=== PATIENT | female | born 1975 | race Caucasian/White ===

== ENCOUNTER 2022-12-31 17:09 | Inpatient (IN) | payer SELFPAY ==
[~2022-12-31] VITALS: Ht 162.5 cm; Wt 74.2 kg
[2022-12-31] MEDS ORDERED: KETOROLAC INJ 30 MG/ML VIAL IVP ONE (20:15)
[2022-12-31] MEDS ORDERED: PIPERACILLIN/Tazobactam 4.5 GM in NS (IVPB) 100 ML 100 ML IV ONE (20:15)
[2022-12-31] MEDS ORDERED: VANCOMYCIN INJECTION 750 MG in NS (IVPB) 250 ML 250 ML IV SCH (20:15)
[2022-12-31] MEDS ORDERED: LACTATED RINGERS 1,000 ML 1,000 ML IV ONE (20:15)
[2022-12-31 20:20] LABS: BASOPHILS # (AUTO) 0.1 10^3/uL (0.0-0.1); BASOPHILS % (AUTO) 1 % (0-10); EOSINOPHILS # (AUTO) 0.2 10^3/uL (0.0-0.3); EOSINOPHILS % (AUTO) 2 % (0-10); HEMATOCRIT 45 % (35-52); HEMOGLOBIN 15.2 g/dL (11.5-16.0); LYMPHOCYTES # (AUTO) 1.1 10^3/uL (1.0-4.0); LYMPHOCYTES % (AUTO) 10 % (12-44); MEAN CORPUSCULAR HEMOGLOBIN 31 pg (25-34); MEAN CORPUSCULAR HGB CONC 34 g/dL (32-36); MEAN CORPUSCULAR VOLUME 91 fL (80-99); MONOCYTES # (AUTO) 0.8 10^3/uL (0.0-1.0); MONOCYTES % (AUTO) 7 % (0-12); NEUTROPHILS # (AUTO) 8.8 10^3/uL (1.8-7.8); NEUTROPHILS % (AUTO) 80 % (42-75); PLATELET COUNT 254 10^3/uL (130-400)
--- NOTE | 2022-12-31 20:20 | ED Integumentary General ---
General Chief Complaint: Skin/Wound Problems Stated Complaint: SORE ON RIGHT INDEX FINGER Nursing Triage Note: PT AMB TO TRIAGE WITH CC OF AREA OF CONERN ON R 2ND FINGER SINCE 12/27. PT STATES WAS SEEN AT [facility] ON 12/29 AND RECIEVED ANTIBIOTICS. PT REPORTS FINGER HAS INCREAED IN REDDNESS AND SWELLING SINCE. PT SENT FROM [facility] THIS AFTERNOON WHERE SHE RECIEVED A SHOT OF ROCEPHIN. Source: patient History of Present Illness Date Seen by Provider: Dec 31, 2022 Time Seen by Provider: 20:00 Initial Comments PT ARRIVES VIA POV FROM HOME C/O INFECTION TO RIGHT INDEX FINGER PT WAS CAMPING LAST FRIDAY WHEN SHE NOTICED SORE ON HER RIGHT INDEX FINGER--THOUGHT SHE MIGHT HAVE BEEN BITTEN BY A SPIDER - SEEN AT [facility] ON FRIDAY AND PLACED ON BACTRIM WENT BACK TO [facility] TODAY IT IS NOT GETTING BETTER, AND IS WORSE AND NOW HAVING STREAKS UP HER [facility] WAS GIVEN A SHOT OF ROCEPHIN AND SENT HERE NO FEVER SHE TOOK IBUPROFEN THIS AM, OTHERWISE NOTHING ELSE FOR PAIN LAST 2010. PCP: NONE--WENT TO [facility] WALK IN [facility]IC FOR THE FIRST TIME ON FRIDAY AND AGAIN TODAY. Allergies and Home Medications Allergies Coded Allergies: Penicillins (Verified Allergy, Unknown, 12/31/22) vancomycin (Verified Allergy, Unknown, 12/31/22) Review of Systems Review of Systems Constitutional: no symptoms reported; No fever Musculoskeletal: see HPI Skin: see HPI Past Gacoohf-Vvkhhz-Ylrctl Hx Patient Social History Tobacco Use?: No Substance use?: Yes Substance type: Marijuana Substance frequency: Couple times a week Alcohol Use?: Yes Alcohol Frequency: Once in a while Past Medical History Surgery/Hospitalization HX: HTN, RESTLESS LEGS, MIGRAINES Surgeries: Yes (SEE BELOW) Appendectomy, Hysterectomy, Oophorectomy, Orthopedic Respiratory: Yes (RIB FX/PNEUMOTHORAX/CHEST TUBES) Cardiac: Yes (NO LONGER ON MEDICATIONS) Hypertension Neurological: Yes (BRAIN BLEED--NO SURGERY) Traumatic Brain Injury Reproductive Disorders: Yes (HYST/BSO) Female Reproductive Disorders: 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 Genitourinary: No Gastrointestinal: Yes (S/P APPENDECTOMY) Musculoskeletal: Yes (BILAT SHOULDERS, L HUMERUS, R ANKLE) Fractures Endocrine: Yes (NO LONGER ON MEDICATIONS) Diabetes, Non-Insulin dep HEENT: No Cancer: No Psychosocial: No Integumentary: No Blood Disorders: No Family Medical History ADDITIONAL PAST MEDICAL HISTORY: -PT SUSTAINED SIGNIFICANT INJURIES FROM [facility] IN 2010, AND WAS HOSPITALIZED FOR APPROXIMATELY 2 MONTHS WITH: -RIB FRACTURES WITH PNEUMOTHORAX AND CHEST TUBES -BRAIN BLEED--NO SURGERY -LEFT HUMERUS FRACTURE WITH PHYLLIS IN PLACE -RIGHT ANKLE FRACTURE WITH HARDWARE IN PLACE -BILATERAL SHOULDER FRACTURES ADDITIONALLY, SHE HAS HAD : -APPENDECTOMY -HYSTERECTOMY/BILATERAL SALPINGO-OOPHORECTOMY Physical Exam Vital Signs Vital Signs - First Documented 12/31/22 17:44 Temp 36.6 Pulse 84 Resp 18 B/P (MAP) 148/97 (114) Pulse Ox 97 O2 Delivery Room Air Capillary Refill : Less Than 3 Seconds General Appearance: WD/WN, no apparent distress Cardiovascular: regular rate, rhythm Respiratory: normal breath sounds Extremities: normal capillary refill, other (RIGHT INDEX FINGER WITH ULCERATION AND SUB QU PURULENCE TO DORSAT ASPECT OF DISTAL PHALANX, WITH SEROSANGUINOUS DRAINAGE. THERE IS DIFFUSE ERYTHEMA AND SWELLING TO DISTAL HALF OF RIGHT INDEX FINGER. NO SIGNIFICANT SWELLING TO HAND. THERE IS A STREAK NOTED TO RIGHT DORSAL FOREARM AND TO MID UPPER ARM. LIMITED FLEXION AND EXTENSION OF RIGHT INDEX FINGER DUE TO PAIN--90 DEGREES FLEXION AND PIP JOINT, . SENSORY/VASCULAR ARE INTACT. 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, no motor/sensory deficits, alert, normal mood/affect, oriented x 3 Skin: normal color, warm/dry, other ( ABOVE) Progress/Results/Core Measures Results/Orders Lab Results Laboratory Tests Test 12/31/22 20:06 12/31/22 20:18 Range/Units White Blood Count 11.0 4.3-11.0 10^3/uL Red Blood Count 4.91 3.80-5.11 10^6/uL Hemoglobin 15.2 11.5-16.0 g/dL Hematocrit 45 35-52 % Mean Corpuscular Volume 91 80-99 fL Mean Corpuscular Hemoglobin 31 25-34 pg Mean Corpuscular Hemoglobin Concent 34 32-36 g/dL Red Cell Distribution Width 12.7 10.0-14.5 % Platelet Count 254 130-400 10^3/uL Mean Platelet Volume 10.0 9.0-12.2 fL Immature Granulocyte % (Auto) 0 % Neutrophils (%) (Auto) 80 H 42-75 % Lymphocytes (%) (Auto) 10 L 12-44 % Monocytes (%) (Auto) 7 0-12 % Eosinophils (%) (Auto) 2 0-10 % Basophils (%) (Auto) 1 0-10 % Neutrophils # (Auto) 8.8 H 1.8-7.8 10^3/uL Lymphocytes # (Auto) 1.1 1.0-4.0 10^3/uL Monocytes # (Auto) 0.8 0.0-1.0 10^3/uL Eosinophils # (Auto) 0.2 0.0-0.3 10^3/uL Basophils # (Auto) 0.1 0.0-0.1 10^3/uL Immature Granulocyte # (Auto) 0.0 0.0-0.1 10^3/uL Erythrocyte Sedimentation Rate 29 H 0-20 MM/HR Prothrombin Time 12.6 12.2-14.7 SEC INR Comment 0.9 0.8-1.4 Activated Partial Thromboplast Time 28 24-35 SEC Sodium Level 136 135-145 MMOL/L Potassium Level 4.6 3.6-5.0 MMOL/L Chloride Level 105 98-107 MMOL/L Carbon Dioxide Level 20 L 21-32 MMOL/L Anion Gap 11 5-14 MMOL/L Blood Urea Nitrogen 19 H 7-18 MG/DL Creatinine 0.91 0.60-1.30 MG/DL Estimat Glomerular Filtration Rate 77 BUN/Creatinine Ratio 21 Glucose Level 91 70-105 MG/DL Calcium Level 9.2 8.5-10.1 MG/DL Corrected Calcium 9.0 8.5-10.1 MG/DL Magnesium Level 2.4 1.6-2.4 MG/DL Total Bilirubin 0.3 0.1-1.0 MG/DL Aspartate Amino Transf (AST/SGOT) 12 5-34 U/L Alanine Aminotransferase (ALT/SGPT) 18 0-55 U/L Total Creatine Kinase 113 29-168 U/L Creatine Kinase MB 2.4 <6.6 NG/ML Myoglobin 70.9 10.0-92.0 NG/ML C-Reactive Protein High Sensitivity 1.80 H 0.00-0.50 MG/DL Total Protein 7.4 6.4-8.2 GM/DL Albumin 4.2 3.2-4.5 GM/DL Lactic Acid Level 0.81 0.50-2.00 MMOL/L My Orders Orders - SARMAD ABARCA DO Ed Iv/Invasive Line Start (12/31/22 20:09) Monitor-Rhythm Ecg Trace Only (12/31/22 20:09) Cbc With Automated Diff (12/31/22 20:09) Comprehensive Metabolic Panel (12/31/22 20:) Creatine Kinase (12/31/22 20:09) Creatine Kinase Mb (12/31/22 20:09) Hs C Reactive Protein (12/31/22 20:09) Magnesium (12/31/22 20:09) Protime With Inr (12/31/22 20:09) Partial Thromboplastin Time (12/31/22 20:09) Erythrocyte Sedimentation Rate (12/31/22 20:09) Myoglobin Serum (12/31/22 20:09) Ed Iv/Invasive Line Start (12/31/22 20:09) Lactated Ringers 1,000 Ml (Lactated Ring (12/31/22 20:15) Blood Culture (12/31/22 20:09) Sputum Culture (12/31/22 20:09) Vital Signs Adult Sepsis Patie Q15M (12/31/22 20:09) Remove Rings In Anticipation O (12/31/22 20:09) Lactic Acid Analyzer (12/31/22 20:09) Piperacillin/Tazobactam (Piperacillin/Ta (12/31/22 20:15) Vancomycin Injection (Vancomycin Injecti (12/31/22 20:15) Finger(S) (12/31/22 20:09) Ct Extremity Upper Right Wo (12/31/22 20:09) Ketorolac Injection (Ketorolac Injection (12/31/22 20:15) Meropenem Injection (Meropenem Injecti (12/31/22 20:30) Wound Culture (12/31/22 20:21) Dipht/Pertuss(Acell)/Tet Adult (Dipht/Pe (12/31/22 20:30) Medications Given in ED Current Medications Medications Dose Ordered Sig/Everardo Route Start Time Stop Time Status Last Admin Dose Admin Diphtheria/ Tetanus/Acell Pertussis 0.5 ml ONCE ONCE IM 12/31/22 20:30 12/31/22 20:31 DC 12/31/22 20:51 0.5 ML Ketorolac Tromethamine 30 mg ONCE ONCE IVP 12/31/22 20:15 12/31/22 20:16 DC 12/31/22 20:50 30 MG Meropenem 500 mg/ Sodium Chloride 100 ml @ 200 mls/hr ONCE ONCE IV 12/31/22 20:30 12/31/22 20:59 12/31/22 20:50 200 MLS/HR Vital Signs/I&O 12/31/22 17:44 Temp 36.6 Pulse 84 Resp 18 B/P (MAP) 148/97 (114) Pulse Ox 97 O2 Delivery Room Air Blood Pressure Mean: 114 Progress Progress Note : Progress Note NO PRIOR VISITS HERE VITALS ON ARRIVAL: TEMP 36.6=97.8, HR 84, RR 18, BP 148/87, O2 SAT 97% ON ROOM AIR SEPSIS PROTOCOL INITIATED GIVEN: -DTP VACCINE -IV FLUIDS -ANTIBIOTICS--MEROPENEM PT IS ALLERGIC TO PENICILLIN AND VANCOMYCIN -TORADOL LABS: -CBC -CMP -CRP -SED RATE BLOOD CULTURES AND WOUND CULTURES PENDING XRAYS OF FINGER CT OF FINGER Diagnostic Imaging Comments PER RADIOLOGIST REPORTS AT 2054 FINGER XRAYS: FINDINGS: 3 views of the right 2nd finger were obtained and show no fractures, dislocations, or other acute bony abnormalities. Joint spaces are well maintained throughout. There is moderate generalized soft tissue swelling. No unexpected radiopaque foreign bodies are identified. IMPRESSION: Moderate generalized soft tissue swelling, but no acute fracture or dislocation of the right 2nd finger. CT SCAN OF FINGER: COMPARISON: Radiographs from earlier same day FINDINGS: No acute fracture or dislocation of the right 2nd finger is seen. Osseous structures are intact. No advanced osteolytic process is seen. No osteoblastic lesion is identified. Joint spaces are maintained. There is generalized soft tissue edema and swelling. No suspicious focal fluid collection is seen. No unexpected radiopaque foreign bodies are identified. There is no soft tissue emphysema. IMPRESSION: 1. Moderate generalized soft tissue swelling and edema of the right 2nd finger. No underlying acute osseous abnormalities seen. Please note, however, that osteomyelitis cannot be excluded based on CT or radiographs alone. If there is concern for osteomyelitis, MRI is advised. If MRI is contraindicated, triple-phase bone scan could be considered. Reviewed: Reviewed by Me Departure Departure-Patient Inst. Referrals: [facility] (PCP/Family) Primary Care Physician SARMAD ABARCA DO Dec 31, 2022 20:20
[2022-12-31 20:29] LABS: INR 0.9 (0.8-1.4); PROTHROMBIN TIME PATIENT 12.6 SEC (12.2-14.7)
[2022-12-31] MEDS ORDERED: Tetanus/Diphtheria/Pertussis (Acell) ADULT Vaccine 0.5 ML IM ONE (20:30)
[2022-12-31] MEDS ORDERED: MEROPENEM INJECTION 500 MG in NS (IVPB) 100 ML 100 ML IV ONE (20:30)
--- NOTE | 2022-12-31 20:34 | Diagnostic Imaging Report ---
INDICATION: finger pain COMPARISON: None. FINDINGS: 3 views of the right 2nd finger were obtained and show no fractures, dislocations, or other acute bony abnormalities. Joint spaces are well maintained throughout. There is moderate generalized soft tissue swelling. No unexpected radiopaque foreign bodies are identified. IMPRESSION: Moderate generalized soft tissue swelling, but no acute fracture or dislocation of the right 2nd finger. Dictated by: Dictated on workstation # [id number]
[2022-12-31 20:35] LABS: ALBUMIN 4.2 GM/DL (3.2-4.5); BILIRUBIN,TOTAL 0.3 MG/DL (0.1-1.0); CALCIUM 9.2 MG/DL (8.5-10.1); CREATININE SERUM 0.91 MG/DL (0.60-1.30); MAGNESIUM 2.4 MG/DL (1.6-2.4); POTASSIUM 4.6 MMOL/L (3.6-5.0); TOTAL PROTEIN 7.4 GM/DL (6.4-8.2)
[2022-12-31 20:41] LABS: CREATINE KINASE MB 2.4 NG/ML (<6.6)
[2022-12-31 20:43] LABS: ERYTHROCYTE SEDIMENTATION RATE 29 MM/HR (0-20)
--- NOTE | 2022-12-31 20:51 | Diagnostic Imaging Report ---
PROCEDURE: CT right upper extremity without contrast. TECHNIQUE: Multiple contiguous axial images were obtained through the right upper extremity without the use of intravenous contrast. Sagittal and coronal reformations were then performed. Auto Exposure Controls were utilized during the CT exam to meet ALARA standards for radiation dose reduction. INDICATION: Redness and swelling to the right 2nd finger. COMPARISON: Radiographs from earlier same day FINDINGS: No acute fracture or dislocation of the right 2nd finger is seen. Osseous structures are intact. No advanced osteolytic process is seen. No osteoblastic lesion is identified. Joint spaces are maintained. There is generalized soft tissue edema and swelling. No suspicious focal fluid collection is seen. No unexpected radiopaque foreign bodies are identified. There is no soft tissue emphysema. IMPRESSION: 1. Moderate generalized soft tissue swelling and edema of the right 2nd finger. No underlying acute osseous abnormalities seen. Please note, however, that osteomyelitis cannot be excluded based on CT or radiographs alone. If there is concern for osteomyelitis, MRI is advised. If MRI is contraindicated, triple-phase bone scan could be considered. Dictated by: Dictated on workstation # [id number]
[2022-12-31 23:14] VITALS: BP 147/90
[2022-12-31 23:17] VITALS: BP 147/90
[2022-12-31] MEDS ORDERED: KETOROLAC INJ 30 MG/ML VIAL IVP PRN (23:45)
[2022-12-31] MEDS ORDERED: ACETAMINOPHEN 500 MG TABLET PO PRN (23:45)
[2022-12-31] MEDS ORDERED: fentaNYL INJECTION 100 MCG/2 ML VIAL IV PRN (23:45)
[2023-01-01] MEDS: LACTATED RINGERS 1,000 ML 1,000 ML IV SCH ×2 (00:01→06:41)
[2023-01-01] MEDS: MEROPENEM 500 MG/NS 100 ML IVPB IV SCH ×8 (02:59→21:07)
[2023-01-01 03:01] VITALS: BP 130/75
[2023-01-01 05:56] LABS: BASOPHILS % (AUTO) 1 % (0-10); EOSINOPHILS # (AUTO) 0.3 10^3/uL (0.0-0.3); EOSINOPHILS % (AUTO) 4 % (0-10); HEMATOCRIT 42 % (35-52); HEMOGLOBIN 14.3 g/dL (11.5-16.0); LYMPHOCYTES # (AUTO) 1.1 10^3/uL (1.0-4.0); LYMPHOCYTES % (AUTO) 15 % (12-44); MEAN CORPUSCULAR HEMOGLOBIN 31 pg (25-34); MEAN CORPUSCULAR HGB CONC 34 g/dL (32-36); MEAN CORPUSCULAR VOLUME 93 fL (80-99); MEAN PLATELET VOLUME 10.3 fL (9.0-12.2); MONOCYTES # (AUTO) 0.7 10^3/uL (0.0-1.0); MONOCYTES % (AUTO) 10 % (0-12); NEUTROPHILS % (AUTO) 70 % (42-75); PLATELET COUNT 219 10^3/uL (130-400); WHITE BLOOD COUNT 7.2 10^3/uL (4.3-11.0)
[2023-01-01 06:36] LABS: ALBUMIN 3.7 GM/DL (3.2-4.5); BILIRUBIN,TOTAL 0.4 MG/DL (0.1-1.0); CALCIUM 8.7 MG/DL (8.5-10.1); CREATININE SERUM 0.91 MG/DL (0.60-1.30); POTASSIUM 4.5 MMOL/L (3.6-5.0); TOTAL PROTEIN 6.6 GM/DL (6.4-8.2)
[2023-01-01 07:22] VITALS: BP 133/85
--- NOTE | 2023-01-01 09:05 | Consultation - Ortho ---
Consult - Ortho Subjective Date of Exam 01/01/23 Chief Complaint right index finger infection HPI/Events since last exam went camping and then began to have swelling and redness at base of index fingernail, had some purulent drainage, admitted for IV antibiotics and I was asked to evaluate Medical, Surgical History see admit Social History see admit Family History see admit Review of Systems - Allergies: Coded Allergies: Penicillins (Verified Allergy, Unknown, 12/31/22) vancomycin (Verified Allergy, Unknown, 12/31/22) Objective Exam Right index finger with erythema and swelling, superficial fluid/purulence collection (18 gauge needle used to open the skin to allow drainage), some stiffness due to swelling, no significant tenderness on flexor side of finger Vital Signs Vital Signs Date Time Temp Pulse Resp B/P (MAP) Pulse Ox O2 Delivery O2 Flow Rate FiO2 01/01/23 08:18 99 Room Air 01/01/23 07:22 35.7 57 16 133/85 (101) 99 Room Air 01/01/23 05:45 Room Air 0.00 01/01/23 03:01 36.0 68 18 130/75 (93) 98 Room Air 01/01/23 01:00 68 12/31/22 23:52 75 12/31/22 23:17 35.9 71 18 147/90 (109) 97 Room Air 12/31/22 23:14 35.9 71 18 147/90 (109) 97 Room Air 12/31/22 22:50 79 18 150/94 97 Room Air 12/31/22 17:44 36.6 84 18 148/97 (114) 97 Room Air I & O 01/01/23 07:00 Intake Total 100 ml Output Total 500 ml Balance -400 ml Lab Results Laboratory Tests 12/31/22 20:06: White Blood Count 11.0, Red Blood Count 4.91, Hemoglobin 15.2, Hematocrit 45, Mean Corpuscular Volume 91, Mean Corpuscular Hemoglobin 31, Mean Corpuscular Hemoglobin Concent 34, Red Cell Distribution Width 12.7, Platelet Count 254, Mean Platelet Volume 10.0, Immature Granulocyte % (Auto) 0, Neutrophils (%) (Auto) 80H, Lymphocytes (%) (Auto) 10L, Monocytes (%) (Auto) 7, Eosinophils (%) (Auto) 2, Basophils (%) (Auto) 1, Neutrophils # (Auto) 8.8H, Lymphocytes # (Auto) 1.1, Monocytes # (Auto) 0.8, Eosinophils # (Auto) 0.2, Basophils # (Auto) 0.1, Immature Granulocyte # (Auto) 0.0, Erythrocyte Sedimentation Rate 29H, Prothrombin Time 12.6, INR Comment 0.9, Activated Partial Thromboplast Time 28, Sodium Level 136, Potassium Level 4.6, Chloride Level 105, Carbon Dioxide Level 20L, Anion Gap 11, Blood Urea Nitrogen 19H, Creatinine 0.91, Estimat Glomerular Filtration Rate 77, BUN/Creatinine Ratio 21, Glucose Level 91, Calcium Level 9.2, Corrected Calcium 9.0, Magnesium Level 2.4, Total Bilirubin 0.3, Aspartate Amino Transf (AST/SGOT) 12, Alanine Aminotransferase (ALT/SGPT) 18, Alkaline Phosphatase 99, Total Creatine Kinase 113, Creatine Kinase MB 2.4, Myoglobin 70.9, C-Reactive Protein High Sensitivity 1.80H, Total Protein 7.4, Albumin 4.2 12/31/22 20:18: Lactic Acid Level 0.81 01/01/23 05:37: White Blood Count 7.2, Red Blood Count 4.56, Hemoglobin 14.3, Hematocrit 42, M pedro Corpuscular Volume 93, Mean Corpuscular Hemoglobin 31, Mean Corpuscular Hemoglobin Concent 34, Red Cell Distribution Width 12.8, Platelet Count 219, Mean Platelet Volume 10.3, Immature Granulocyte % (Auto) 0, Neutrophils (%) (Auto) 70, Lymphocytes (%) (Auto) 15, Monocytes (%) (Auto) 10, Eosinophils (%) (Auto) 4, Basophils (%) (Auto) 1, Neutrophils # (Auto) 5.0, Lymphocytes # (Auto) 1.1, Monocytes # (Auto) 0.7, Eosinophils # (Auto) 0.3, Basophils # (Auto) 0.0, Immature Granulocyte # (Auto) 0.0, Sodium Level 138, Potassium Level 4.5, Chloride Level 106, Carbon Dioxide Level 23, Anion Gap 9, Blood Urea Nitrogen 19H, Creatinine 0.91, Estimat Glomerular Filtration Rate 77, BUN/Creatinine Ratio 21, Glucose Level 89, Calcium Level 8.7, Corrected Calcium 8.9, Total Bilirubin 0.4, Aspartate Amino Transf (AST/SGOT) 14, Alanine Aminotransferase (ALT/SGPT) 17, Alkaline Phosphatase 89, Total Protein 6.6, Albumin 3.7 Microbiology 12/31/22 Gram Stain, Resulted Pending 12/31/22 Wound Culture - Preliminary, Resulted Staphylococcus aureus Assessment and Plan Assessment Right Index Finger Cellulitis with Superficial Abscess collection Problem List Right Index Finger Cellulitis with Superficial Abscess collection Plan Agree with antibiotics Trephinated at bedside Final Diagonsis Right Index Finger Cellulitis with Superficial Abscess collection Level of the visit: Level 3 YASMIN FORD MD Jan 01, 2023 09:05
[2023-01-01] MEDS ORDERED: IBUP-2185 PO (09:45)
--- NOTE | 2023-01-01 10:01 | History & Physical-Hospitalist ---
History of Present Illness HPI/Chief Complaint Pt is a 47yoCF with a PMH of HTN who presented to the ER due to finger swelling. Ports she went camping over the weekend and while sleeping she thought that she got bit by a spider. Over the next couple of days her finger started to swell and turned red. She was seen at [facility] walk in for this and started on abx. Despite taking these for two days it continued to worsen. She states her whole arm was turning red and spreading up to her axilla. She returned to [facility] and they sent her to the ER where she was admitted. This morning she reports feeling better. Her redness has improved and Dr Gill has just drained the abscess on her finger and wrapped it. Source: patient Date Seen 01/01/23 Time Seen by a Provider: 09:52 Attending Physician [facility] PCP Admitting Physician: Max Lucia MD Attending Physician: Max Lucia MD Referring Physician Date of Admission Dec 31, 2022 at 22:54 Home Medications & Allergies Home Medications Reviewed patient Home Medication Reconciliation performed by pharmacy medication reconciliations business office technician and/or nursing. Patients Allergies have been reviewed. Allergies Allergies Coded Allergies Penicillins (Verified Allergy, Unknown, 12/31/22) vancomycin (Verified Allergy, Unknown, 12/31/22) Past [id number]-[id number] Hx Patient Social History Marrital Status: Tobacco Use?: Yes Tobacco type used: Cigarettes Smoking Status: Light Tobacco Smoker Smokeless Tobacco Frequency: Never a User Use of E-Cig and/or Vaping dev: No Use of E-Cig and/or Vaping Joaquin: Never a User Substance use?: Yes Substance type: Marijuana Substance frequency: Once in a while Alcohol Use?: Yes Alcohol type: Beer, Hard Liquor Alcohol Frequency: Couple times a week Pt feels they are or have been: No Immunizations Up To Date Tetanus Booster (TDap): Less Than 5 Years Hepatitis A: No Hepatitis B: No Current Status status: No status: No Advance Directives: No Communicates: Verbally Primary Language: Djiboutian Preferred Spoken Language: Djiboutian Is interpretation needed?: No Sensory deficits: Vision impairment Implanted or Applied Medical D: None Past Medical History Surgeries: Appendectomy, Hysterectomy, Oophorectomy, Orthopedic Hypertension 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 Brain 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 Fractures Diabetes, Non-Insulin dep Blood Disorders: No Family Medical History ADDITIONAL PAST MEDICAL HISTORY: -PT SUSTAINED SIGNIFICANT INJURIES FROM [facility] IN 2010, AND WAS HOSPITALIZED FOR APPROXIMATELY 2 MONTHS WITH: -RIB FRACTURES WITH PNEUMOTHORAX AND CHEST TUBES -BRAIN BLEED--NO SURGERY -LEFT HUMERUS FRACTURE WITH PHYLLIS IN PLACE -RIGHT ANKLE FRACTURE WITH HARDWARE IN PLACE -BILATERAL SHOULDER FRACTURES ADDITIONALLY, SHE HAS HAD : -APPENDECTOMY -HYSTERECTOMY/BILATERAL SALPINGO-OOPHORECTOMY Review of Systems Constitutional: see HPI Physical Exam Physical Exam Vital Signs Vital Signs - First Documented 12/31/22 01/01/23 17:44 05:45 Temp 36.6 Pulse 84 Resp 18 B/P (MAP) 148/97 (114) Pulse Ox 97 O2 Delivery Room Air O2 Flow Rate 0.00 Capillary Refill : Less Than 3 Seconds Height, Weight, BMI Height: '" Weight: lbs. oz. kg; 28.09 BMI Method: General Appearance: No Apparent Distress, WD/WN Respiratory: Lungs Clear, No Respiratory Distress Cardiovascular: Regular Rate, Rhythm, No Murmur Gastrointestinal: Normal Bowel Sounds, Soft Extremity: Other (right index finger had just been drained and wrapped by Dr Gill- I did not undress as he was finishing wrapping it when I walked in the room. Erythema noted on forearm significantly improved per patient ) Neurologic/Psychiatric: Alert, Oriented x3 Results Results/Procedures Labs Laboratory Tests 12/31/22 20:06 01/01/23 05:37 01/02/23 05:38 Patient resulted labs reviewed. Imaging: Reviewed Imaging Report Imaging [facility] [place] NAME: PAO GU [facility] REC#: [id number] PT STATUS: REG ER : 1975 PHYSICIAN: SARMAD ABARCA DO ADMIT DATE: 12/31/22/ER Draft Date of Exam:12/31/22 FINGER(S) INDICATION: finger pain COMPARISON: None. FINDINGS: 3 views of the right 2nd finger were obtained and show no fractures, dislocations, or other acute bony abnormalities. Joint spaces are well maintained throughout. There is moderate generalized soft tissue swelling. No unexpected radiopaque foreign bodies are identified. IMPRESSION: Moderate generalized soft tissue swelling, but no acute fracture or dislocation of the right 2nd finger. Dictated on workstation # [id number] Dict: 12/31/222031 Trans: 12/31/222033 KAL [id number] Interpreted by: GIOVANNA CARPENTER MD Electronically signed by: [facility] [place], [place] NAME: PAO GU [facility] REC#: [id number] PT STATUS: REG ER : 1975 PHYSICIAN: SRAMAD ABARCA DO ADMIT DATE: 12/31/22/ER Draft Date of Exam:12/31/22 CT EXTREMITY UPPER RIGHT WO PROCEDURE: CT right upper extremity without contrast. TECHNIQUE: Multiple contiguous axial images were obtained through the right upper extremity without the use of intravenous contrast. Sagittal and coronal reformations were then performed. Auto Exposure Controls were utilized during the CT exam to meet ALARA standards for radiation dose reduction. INDICATION: Redness and swelling to the right 2nd finger. COMPARISON: Radiographs from earlier same day FINDINGS: No acute fracture or dislocation of the right 2nd finger is seen. Osseous structures are intact. No advanced osteolytic process is seen. No osteoblastic lesion is identified. Joint spaces are maintained. There is generalized soft tissue edema and swelling. No suspicious focal fluid collection is seen. No unexpected radiopaque foreign bodies are identified. There is no soft tissue emphysema. IMPRESSION: 1. Moderate generalized soft tissue swelling and edema of the right 2nd finger. No underlying acute osseous abnormalities seen. Please note, however, that osteomyelitis cannot be excluded based on CT or radiographs alone. If there is concern for osteomyelitis, MRI is advised. If MRI is contraindicated, triple-phase bone scan could be considered. Dictated on workstation # [id number] Dict: 12/31/222042 Trans: 12/31/222049 KAL [id number] Interpreted by: GIVOANNA CARPENTER MD Electronically signed by: Assessment/Plan Admission Diagnosis Cellulitis Admission Status: Inpatient Order (span 2 midnights) Reason for Inpatient Admission: see below Assessment and Plan Cellulitis Failed outpatient management with oral abx Ortho consulted, appreciate recs Continue Merrem due to PCN and Vanc allergies Await cultures Dressing changes per Dr Gill h/o HTN Mildly elevated in the ER yesterday, improved today Has been off meds for a while because shelost weight and BP improved trend DVT ppx: Lovenox Diagnosis/Problems Diagnosis/Problems (1) Cellulitis with lymphangitis of right index finger STEWART HAYWOOD MD Jan 01, 2023 10:01
[2023-01-01] MEDS: ENOXAPARIN 40 MG/0.4 ML SYRINGE SQ SCH (11:30)
[2023-01-01 11:35] VITALS: BP_SYST 104; BP_SYST 130; BP_DIAS 69; BP_DIAS 82
[2023-01-01 15:59] VITALS: BP 141/91
[2023-01-01 20:07] VITALS: BP 152/86
[2023-01-02] VITALS (7 sets, daily range): BP systolic 108–160; BP diastolic 72–94
[2023-01-02] MEDS: MEROPENEM 500 MG/NS 100 ML IVPB IV SCH ×2 (04:58)
[2023-01-02 05:50] LABS: HEMATOCRIT 43 % (35-52); HEMOGLOBIN 14.9 g/dL (11.5-16.0); MEAN CORPUSCULAR HEMOGLOBIN 32 pg (25-34); MEAN CORPUSCULAR HGB CONC 34 g/dL (32-36); MEAN CORPUSCULAR VOLUME 92 fL (80-99); MEAN PLATELET VOLUME 10.2 fL (9.0-12.2); PLATELET COUNT 246 10^3/uL (130-400); WHITE BLOOD COUNT 5.3 10^3/uL (4.3-11.0)
[2023-01-02 06:12] LABS: CALCIUM 9.2 MG/DL (8.5-10.1); CREATININE SERUM 0.8 MG/DL (0.60-1.30); POTASSIUM 4.2 MMOL/L (3.6-5.0)
[2023-01-02] MEDS ORDERED: IBUPROFEN 600 MG TABLET PO ONE (09:23)
[2023-01-02] MEDS: LINEZOLID IVPB 300 ML IV SCH ×2 (09:29→20:10)
[2023-01-02] MEDS: IBUPROFEN 600 MG TABLET PO PRN ×2 (09:34→18:09)
[2023-01-02] MEDS: ENOXAPARIN 40 MG/0.4 ML SYRINGE SQ SCH (09:35)
--- NOTE | 2023-01-02 10:54 | Progress Note - Hospitalist ---
Subjective HPI/CC On Admission Date Seen by Provider: Jan 02, 2023 Pt is a 47yoCF with a PMH of HTN who presented to the ER due to finger swelling. Ports she went camping over the weekend and while sleeping she thought that she got bit by a spider. Over the next couple of days her finger started to swell and turned red. She was seen at [facility] walk in for this and started on abx. Despite taking these for two days it continued to worsen. She states her whole arm was turning red and spreading up to her axilla. She returned to [facility] and they sent her to the ER where she was admitted. This morning she reports feeling better. Her redness has improved and Dr Gill has just drained the abscess on her finger and wrapped it. Subjective/Events-last exam Pt reports doing ok today. No complaints. Thinks arm is doing much better. Focused Exam Lactate Level 12/31/22 20:18: Lactic Acid Level 0.81 Objective Exam Vital Signs Vital Signs Date Time Temp Pulse Resp B/P (MAP) Pulse Ox O2 Delivery O2 Flow Rate FiO2 01/02/23 08:00 Room Air 0.00 01/02/23 07:53 35.8 54 16 108/72 (84) 99 Capillary Refill : Less Than 3 Seconds General Appearance: No Apparent Distress Respiratory: Lungs Clear, No Respiratory Distress Cardiovascular: Regular Rate, Rhythm, No Murmur Neurologic/Psychiatric: Alert, Oriented x3 Results/Procedures Lab Laboratory Tests 01/02/23 05:38 Patient resulted labs reviewed. Imaging: Reviewed Imaging Report Assessment/Plan Assessment and Plan Assess & Plan/Chief Complaint Cellulitis Failed outpatient management with oral abx Ortho consulted, appreciate recs MRSA on culture- switch to linezolid Dressing changes per Dr iGll h/o HTN BP improved this AM Has been off meds for a while because she lost weight and BP improved trend DVT ppx: Lovenox Diagnosis/Problems Diagnosis/Problems (1) Cellulitis with lymphangitis of right index finger STEWART HAYWOOD MD Jan 02, 2023 10:54
[2023-01-02] MEDS ORDERED: LNZ600T PO (11:29)
[2023-01-03 00:10] VITALS: BP 144/84
[2023-01-03 03:56] VITALS: BP 159/100
[2023-01-03] MEDS: IBUPROFEN 600 MG TABLET PO PRN (03:56)
[2023-01-03 07:46] VITALS: BP 159/90
[2023-01-03] MEDS: LINEZOLID IVPB 300 ML IV SCH (08:42)
[2023-01-03] MEDS: ENOXAPARIN 40 MG/0.4 ML SYRINGE SQ SCH (08:42)
--- NOTE | 2023-01-03 09:59 | Discharge Inst-Simple/Standard ---
Discharge Inst-Standard Discharge Medications New, Converted or Re-Newed RX: RX Given to Pt/Family Patient Instructions/Follow Up Plan of Care/Instructions/FU: Please continue to take your medications as written. Please follow up with your primary care doctor to follow up this hospital stay. Activity as Tolerated: Yes Discharge Diet: No Restrictions Return to The Hospital For: Chest pain, increasing pain or redness, swelling or decreased range of motion of finger, shortness of breath, fever, weakness, if you feel you are getting worse. STEWART HAYWOOD MD Jan 03, 2023 09:59
--- NOTE | 2023-01-03 10:11 | Discharge Summary ---
Diagnosis/Chief Complaint Date of Admission Dec 31, 2022 at 22:54 Date of Discharge Discharge Date: Jan 03, 2023 Admission Diagnosis Cellulitis [facility] Discharge Diagnosis (1) Cellulitis with lymphangitis of right index finger Discharge Summary Discharge Physical Exam Allergies: Coded Allergies: Penicillins (Verified Allergy, Unknown, 12/31/22) vancomycin (Verified Allergy, Unknown, 12/31/22) Vitals & I&Os Vital Signs Date Time Temp Pulse Resp B/P (MAP) Pulse Ox O2 Delivery O2 Flow Rate FiO2 01/03/23 07:46 36.4 54 16 159/90 (113) 97 Room Air 01/02/23 08:00 0.00 Hospital Course Labs (last 24 hrs) Laboratory Tests 01/02/23 11:30: Glucometer 129H Microbiology 12/31/22 Blood Culture - Preliminary, Resulted No growth 12/31/22 Gram Stain - Final, Resulted 12/31/22 Wound Culture - Preliminary, Resulted Staphylococcus aureus Patient resulted labs reviewed. Imaging: Reviewed Imaging Report Discharge Home Medications: Active Scripts Active Linezolid 600 Mg Tablet 600 Mg PO BID Reported Ibuprofen 200 Mg Capsule 800 Mg PO Q8H PRN TAKES 4 (200MG) CAPS Instructions to patient/family Please see electronic discharge instructions given to patient. STEWART HAYWOOD MD Jan 03, 2023 10:11
--- NOTE | 2023-01-03 10:31 | Progress Note - Ortho ---
Progress Note Subjective Date of Exam 01/03/23 Chief Complaint right index finger infection HPI/Events since last exam improving, feels better Review of Systems - Allergies: Coded Allergies: Penicillins (Verified Allergy, Unknown, 12/31/22) vancomycin (Verified Allergy, Unknown, 12/31/22) Home Meds Active Scripts Linezolid (Linezolid) 600 Mg Tablet, 600 MG PO BID, #20 TAB Prov:STEWART HAYWOOD MD 01/02/23 Reported Medications Ibuprofen (Ibuprofen) 200 Mg Capsule, 800 MG PO Q8H PRN for PAIN-MILD (1-4), CAP TAKES 4 (200MG) CAPS 01/01/23 Objective Exam right index finger with some ongoing purulent drainage, improved erythema, improved motion Vital Signs Vital Signs Date Time Temp Pulse Resp B/P (MAP) Pulse Ox O2 Delivery O2 Flow Rate FiO2 01/03/23 08:00 Room Air 01/03/23 07:46 36.4 54 16 159/90 (113) 97 Room Air 01/03/23 07:00 53 01/03/23 03:56 35.0 59 18 159/100 (119) 100 Room Air 01/03/23 01:00 60 01/03/23 00:10 35.9 49 16 144/84 (104) 99 Room Air 01/02/23 20:05 100 Room Air 01/02/23 19:30 36.8 63 16 151/84 (106) 100 Room Air 01/02/23 19:00 69 01/02/23 15:29 36.4 60 16 159/86 (110) 100 Room Air 01/02/23 13:02 69 01/02/23 11:40 36.1 52 16 156/ 98 01/02/23 11:32 35.7 60 16 138/74 (95) Room Air I & O 01/03/23 07:00 Intake Total 2190 ml Output Total 2350 ml Balance -160 ml Lab Results Laboratory Tests 01/02/23 11:30: Glucometer 129H Microbiology 12/31/22 Blood Culture - Preliminary, Resulted No growth 12/31/22 Gram Stain - Final, Resulted 12/31/22 Wound Culture - Preliminary, Resulted Staphylococcus aureus Assessment and Plan Assessment Right Index Finger Cellulitis with Superficial Abscess Problem List Right Index Finger Cellulitis with Superficial Abscess Plan Continue antibiotics Continue dressing changes; expect skin to peel in area of drainage F/U with me only if not improving as expected Final Diagonsis Right Index Finger Cellulitis with Superficial Abscess Level of the visit: Level 3 Focused Exam Lactate Level 12/31/22 20:18: Lactic Acid Level 0.81 YASMIN FORD MD Jan 03, 2023 10:31
[2023-01-03 11:25] VITALS: BP 159/90
== END 2023-01-03 11:25 | disposition home or self-care (01) | DRG 603 ==
LOC: EDUNIT# 17:09 → ER 17:10 → 4TH 22:54
PROVIDERS: ADMIT Internal Medicine; ATTEND Internal Medicine
DX: L03.011 Cellulitis of right finger (principal); L02.511 Cutaneous abscess of right hand; E11.9 Type 2 diabetes mellitus without complications; I10 Essential (primary) hypertension; G25.81 Restless legs syndrome; F17.210 Nicotine dependence, cigarettes, uncomplicated; Z87.820 Personal history of traumatic brain injury; Z23 Encounter for immunization; Z88.1 Allergy status to other antibiotic agents; Z88.0 Allergy status to penicillin
CPT/HCPCS: 36415; 73140; 73200; 80048; 80053; 82550; 82553; 82947; 83605; 83735; 83874; 85025; 85027; 85610; 85652; 85730; 86141; 87040; 87070; 87077; 87186; 87205; 90471; 90715; 96361; 96365; 96375